=== PATIENT | female | born 1995 | race Caucasian/White ===

== ENCOUNTER 2021-06-09 08:59 | Emergency (ER) | payer OTHER ==
[~2021-06-09] VITALS: Ht 157.5 cm; Wt 97.7 kg
[2021-06-09 09:19] VITALS: BP 129/82
== END 2021-06-09 11:04 | disposition home or self-care (01) ==
LOC: ER 08:59 → EEVIPCON 08:59 → ER 11:04
DX: S46.212A Strain of muscle, fascia and tendon of other parts of biceps, left arm, initial encounter (principal); R40.4 Transient alteration of awareness; Z88.2 Allergy status to sulfonamides; X50.0XXA Overexertion from strenuous movement or load, initial encounter; Y93.89 Activity, other specified; Y92.89 Other specified places as the place of occurrence of the external cause; Y99.8 Other external cause status
CPT/HCPCS: 99281

== ENCOUNTER 2024-06-10 05:53 | Emergency (ER) | payer BC, OTHER ==
[~2024-06-10] VITALS: Ht 154.9 cm; Wt 107.2 kg
[2024-06-10 05:56] VITALS: TEMP 97.6
[2024-06-10] MEDS ORDERED: ALBU8HFA INH (06:32)
[2024-06-10 06:51] VITALS: BP 157/93; PULSE 103; RESP 18; O2SAT 96
== END 2024-06-10 06:52 | disposition home or self-care (01) ==
LOC: ER 05:54
DX: R05.9 Cough, unspecified (principal)
CPT/HCPCS: 71045; 99283

== ENCOUNTER 2024-08-21 09:10 | Emergency (ER) | payer BC ==
[~2024-08-21] VITALS: Ht 157.5 cm; Wt 100.0 kg
[2024-08-21 09:15] VITALS: BP 156/90; TEMP 98
[2024-08-21 10:00] VITALS: PULSE 91; RESP 17
[2024-08-21] MEDS ORDERED: AZIT250T83 PO (10:19)
[2024-08-21] MEDS ORDERED: PROM118S5 PO (10:19)
[2024-08-21 10:52] VITALS: O2SAT 98
== END 2024-08-21 10:54 | disposition home or self-care (01) ==
LOC: ER 09:10
DX: J22 Unspecified acute lower respiratory infection (principal)
CPT/HCPCS: 71045; 99283

== ENCOUNTER 2025-06-18 05:58 | Emergency (ER) | payer BC ==
[~2025-06-18] VITALS: Ht 154.9 cm; Wt 100.0 kg
[2025-06-18 06:04] VITALS: TEMP 98.2
--- NOTE | 2025-06-18 06:32 | Physician Documentation ---
History of Present Illness ~ Chief Complaint: Rash Stated Complaint: RASH Time Seen by MD: 06:32 Primary Medical Doctor: none HPI presents with rash. also had mild headache last night which has improved. Describes as slight burning sensation. No fevers. No neck pain. Medication Reconciliation Allergies: Coded Allergies: Sulfa (Sulfonamide Antibiotics) (Verified Allergy, Unknown, 06/18/25) Uncoded Allergies: SULF (Allergy, Unknown, 06/09/21) Past Medical History Past Medical History: No Pertinent History Past Surgical History: no surgical history Last Menstrual Period: Jun 04, 2025 Alcohol Use: None Lives with: Spouse Lives In: Home Review of Systems All Other Systems at this time: Reviewed and Negative Respiratory: Denies: cough, orthopnea Cardiovascular: Denies: chest pain Gastrointestinal: Denies: abdominal pain, nausea, vomiting Physical Exam Vital Signs: RN Vital Signs have been reviewed: Yes, Temperature: 98.2, Source: Oral, Heart Rate: 78, Respiratory Rate: 16, BP: 139/90, Pulse Oximetry: 98, Weight: 100.000 Oxygen Flow Rate: 0 Physical Exam well appearing no distress neck supple neuro awake alert oriented breathing comfortably skin 1cm area maculo papular rash left lateral abdominal wall. No vesicles Progress Results/Orders Results/Orders Vital Signs 06/18/25 06:04 Temp 98.2 Pulse 78 Resp 16 B/P (MAP) 139/90 Pulse Ox 98 O2 Flow Rate 0 Medical Decision Making Additional information obtaine: N/A Findings 30 yof p/w mild SIDDIQUI and small mac pap rash. Differential broad at this point but could be early shingles. She looks very well. no fever. She does have h/o chicken pox. Differential Dx:Considerations: Include: Herpes zoster, Herpes simplex, Hidradenitis suppurativa Additional Comment meningitis Departure Disposition: HOME / SELF CARE / HOMELESS Impression: Primary Impression: Rash Additional Instructions: return for fever or neck pain. Referrals: NO PRIMARY CARE PROVIDER (PCP) Prescriptions Prednisone* (Prednisone*) 20 Mg Tablet 3 TAB PO DAILY for 5 Days, #15 TAB Prov: SUYAPA SANCHEZ MD 06/18/25 Valacyclovir HCl (Valtrex) 1,000 Mg Tablet 1 TAB PO Q8H for 7 Days, #21 TAB 0 Refills Prov: SUYAPA SANCHEZ MD 06/18/25 Signature Scribe Signature: tad Attestation: SUYAPA Grier MD Jun 18, 2025 06:32
[2025-06-18] MEDS ORDERED: PRED20TA PO (06:44)
[2025-06-18] MEDS ORDERED: VALA10002 PO (06:44)
[2025-06-18 07:15] VITALS: BP 140/93; PULSE 64; RESP 13; O2SAT 98
== END 2025-06-18 07:25 | disposition home or self-care (01) ==
LOC: ER 05:58
DX: R21 Rash and other nonspecific skin eruption (principal); R51.9 Headache, unspecified; Z88.2 Allergy status to sulfonamides
CPT/HCPCS: 99283